=== PATIENT | male | born 1945 | race Caucasian/White ===

== ENCOUNTER → 2017-06-25 | Outpatient (CLI) | payer OTHER ==
--- NOTE | 2017-06-25 15:23 | DI ---
MRI RIGHT SHOULDER SCAN, 06/25/2017 1:32 PM: Clinical History: Right shoulder pain. Previous Exam: None at this facility. Technique: Axial, coronal, and sagittal fat saturated PD; axial gradient FE; coronal fat saturatedT2 weighted; sagittal T2 weighted. There is no soft tissue edema or joint effusion. There is abnormal increased signal intensity in the subchondral bone along the medial aspect of the humeral head as well as along the posterolateral vick in of the humeral head. Subchondral cystic degenerative changes are also present toward the 6:00 posi tion of the glenoid fossa. There is an os acromiale with fluid in the synchondrosis, but no edema is present. There is a type II acromion. There is tendinosis of the supraspinatus tendon with an articul ar surface partial thickness tear of the anterior aspect of the infraspinatus tendon and this measure s 8 x 4 mm in AP and transverse dimensions. The teres minor tendon is normal. The subscapularis tendo n and the tendon of the long head of the biceps muscle in the rotator interval show tendinosis. There is a type II SLAP tear that extends posteriorly from the 12:00 position to the 6:00 position. There is a groove in the anteromedial and inferior aspect of the humeral head. This patient may have had a posterior dislocation of the humeral head with creation of the posterior labral tear and a "reverse" Hill-Sachs deformity in the humeral head. The labrum in the anteroinferior quadrant is intact an abse nt in the anterosuperior quadrant where there is extension of the anterior band of the IGHL with a hi gh attachment. There is thinning of the articular surfaces of the humeral head and glenoid fossa. The re is no muscle atrophy. Readin. There is a type II SLAP tear that extends posteriorly from the 12:00 to 6:00 position with what m ay represent a "reverse" Hill-Sachs deformity in the humeral head suggesting this patient may have fam d a posterior dislocation of the humeral head. There is subchondral edema in the medial aspect of the humeral head as well as in the region where a typical Hill-Sachs deformity would be located. There i s a partial thickness articular surface tear of the anterior margin of the infraspinatus tendon that measures 8 x 4 mm. Tendinosis is present in the supraspinatus and subscapularis tendons and the tendo n of the long head of the biceps muscle in the rotator interval. There is an os acromiale with fluid in the synchondrosis but without edema in the bony components. 2. The AC joint is normal and there is a type II acromion. The teres minor tendon is normal. The art icular surfaces of the glenoid and humeral head are thin but intact.
--- NOTE | 2017-06-25 15:58 | DI ---
MRI LEFT SHOULDER SCAN, 06/25/2017 1:32 PM: Clinical History: Left shoulder pain. Previous Exam: None at this facility. Technique: Axial, coronal, and sagittal fat saturated PD; axial gradient FE; coronal fat saturatedT2 weighted; sagittal T2 weighted. There is no soft tissue edema or abnormal bone signal pattern. There is mild arthrosis of the AC join t with fluid in the AC joint. A type II acromion is present. Fluid is present in the subacromion burs a consistent with bursitis. There is an interstitial tear of the distal aspect of the supraspinatus t endon and a similar but more prominent there are is present in the infraspinatus tendon. Both of thes e interstitial tears will not be visible at arthroscopy. The subscapularis and teres minor tendons an d the tendon of the long head of the biceps muscle are normal. There is fluid in the extra-articular portion of the tendon of the long head of the biceps muscle consistent with tenosynovitis. There is a type II SLAP tear with posterior extension almost to the 6:00 position. The anterior labrum is intac t. The articular surfaces of the humeral head and glenoid fossa are normal. There is no muscle atroph y. Readin. There is a type II SLAP tear that extends posteriorly and inferiorly almost to the 6:00 position. Interstitial tears are present in the distal portions of the supraspinatus and infraspinatus tendons and these would not be visible at arthroscopy. Mild arthrosis of the AC joint is present with fluid in the AC joint. There is tenosynovitis of the tendon of the long head of the biceps muscle in the ex tra-articular portion and there is moderate subacromion bursitis. 2. The teres minor and subscapularis tendons in the tendon of the long head of the biceps muscle are intact. The articular surfaces of the humeral head and glenoid fossa are normal and there is no evid ence of muscle atrophy. There is a type II acromion.
== END ==
LOC: MRI 12:43
PROVIDERS: ATTEND Physician Assistant Medical
DX: M25.511 Pain in right shoulder (principal); M25.512 Pain in left shoulder; S43.432A Superior glenoid labrum lesion of left shoulder, initial encounter; S46.012A Strain of muscle(s) and tendon(s) of the rotator cuff of left shoulder, initial encounter; M19.012 Primary osteoarthritis, left shoulder; M65.812 Other synovitis and tenosynovitis, left shoulder; S43.431A Superior glenoid labrum lesion of right shoulder, initial encounter; S46.811A Strain of other muscles, fascia and tendons at shoulder and upper arm level, right arm, initial encounter
CPT/HCPCS: 73221